=== PATIENT | male | born 1955 | race Asian ===

== ENCOUNTER 2017-03-06 17:58 | Emergency (ER) | payer OTHER ==
[~2017-03-06] VITALS: Ht 149.9 cm; Wt 59.0 kg
[2017-03-06] MEDS ORDERED: ATOR40TA28 PO (18:21)
[2017-03-06 19:50] VITALS: BP 138/98
[2017-03-06] MEDS ORDERED: PERTUSS(ACELL),DIPH,TET VAC/PF 0.5 ML VIAL IM ONE (20:30)
== END 2017-03-06 20:39 | disposition home or self-care (01) ==
LOC: EMS 18:05
DX: S90.454A Superficial foreign body, right lesser toe(s), initial encounter (principal); I10 Essential (primary) hypertension; E78.00 Pure hypercholesterolemia, unspecified; Z87.891 Personal history of nicotine dependence; W45.8XXA Other foreign body or object entering through skin, initial encounter; Y93.89 Activity, other specified; Y92.89 Other specified places as the place of occurrence of the external cause; Y99.8 Other external cause status
CPT/HCPCS: 10120; 90471; 90715; 99284